=== PATIENT | male | born 1970 | race African-American/Black ===

== ENCOUNTER 2017-08-29 10:04 | Emergency (ER) | payer SELFPAY ==
[~2017-08-29] VITALS: Ht 188 cm; Wt 134.8 kg
[2017-08-29 10:14] VITALS: Ht 188 cm; Wt 134.8 kg
[2017-08-29] MEDS ORDERED: IBUPROFEN 800 MG TAB PO ONE (11:00)
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
[2017-08-29] MEDS ORDERED: NAPR-260 PO (11:45)
[2017-08-29] MEDS ORDERED: HYDR-906 PO (11:45)
[2017-08-29] MEDS ORDERED: CYCL-319 PO (11:45)
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
== END 2017-08-29 12:00 | disposition home or self-care (01) ==
LOC: FTE 10:04
DX: S29.9XXA Unspecified injury of thorax, initial encounter (principal); V49.49XA Driver injured in collision with other motor vehicles in traffic accident, initial encounter
CPT/HCPCS: 72072